=== PATIENT | female | born 1960 | race Caucasian/White ===

== ENCOUNTER → 2016-06-14 | Outpatient (CLI) | payer OTHER ==
[~2016-06-14] MED LIST: ADVIL200 M2 PO; ASPIRIN81 MG PO; ATARAX PO; B-121000 MC1 PO; CALCIUM PO; DELTASONE20 MG PO; FLOVENT DI50 MCG/DIS; LIORESAL10 MG PO; MULTI VITAMIN1 EACH PO; OMEGA 3-6-9 11200 M1 PO; PEPCID AC20 MG PO; TRIAMCINOLONE A15 G2 EXT; ZYRTEC10 M2 PO; [UNRECOGNIZED DRUG - OTHER] PO
--- NOTE | ~2016-06-14 | MY11 ---
[facility] A Service of [facility] RADIOLOGY TEXT RESULTS PATIENT: EDMUNDO NAVARRO LOCATION: [facility] : 62 UNIT #: [id number] AGE: [address]: Gloria West SEX: F ORDER DR: [id number] [address] [address] [id number] O MR#: [id number] Acc #: [id number] NAME: EDMUNDO NAVARRO : 1960 SEX: F STUDY DATE/TIME: 06/14/2016 15:16 UNIT: [facility] ROOM: STUDY DESCRIPTION: MY Mammogram Screening Dig Rehan Attending Physician: Gloria West A.P.R.N. Referring Physician: Gloria West A.P.R.N. Ordering Physician: Gloria West A.P.R.N. Primary Care Physician: Gloria West A.P.R.N. MEDICAL IMAGING REPORT This report is preliminary unless electronic signature is present. EXAM Digital screening mammogram, 06/14/2016, [facility]. HISTORY 56-year-old woman no risk elevation. Annual screen. COMPARISON STUDIES Mammograms date to 10/12/2009 with most recent 05/16/2015. TECHNIQUE Digital imaging of each breast was completed utilizing screening protocol. Review includes FDA-approved CAD device. FINDINGS Breast parenchyma is heterogeneous with scattered parenchymal opacities throughout both breast. Subtle focal area architectural distortion projects in the upper hemisphere left breast middle third. This will require additional imaging to exclude summation artifact. Recommend a true lateral projection with exaggerated craniocaudal view and high-resolution spot compression views. Right breast parenchyma is negative and stable. IMPRESSION Incomplete mammographic evaluation. Additional left breast imaging is recommended. See full report with recommendations. Patients over the age of 40 are entered into a reminder system with target due date for the next mammogram. A result letter will also be sent to the patient. BIRADS: 0 Incomplete; need additional imaging evaluation and/or prior mammograms for comparison. [facility] A Service of [facility] RADIOLOGY TEXT RESULTS PATIENT: EDMUNDO NAVARRO LOCATION: [facility] : 62 UNIT #: [id number] AGE: [address]: Gloria West SEX: F ORDER DR: STAT * RESULT Dictated by... Zi Castillo M.D. THIS IS AN ELECTRONICALLY VERIFIED REPORT Zi Castillo M.D. at 06/14/2016 3:59 PM FOREIGN/girish TD: 06/14/2016 15:51 JOB #: [id number] MEDICAL IMAGING REPORT Page 1 of 1
== END | disposition home or self-care (01) ==
LOC: SMAM 14:40
DX: Z12.31 Encounter for screening mammogram for malignant neoplasm of breast (principal)
CPT/HCPCS: G0202

== ENCOUNTER → 2016-06-26 | Outpatient (CLI) | payer OTHER ==
--- NOTE | ~2016-06-26 | MY7 ---
[facility] A Service of [facility] RADIOLOGY TEXT RESULTS PATIENT: EDMUNDO NAVARRO LOCATION: [facility] : 62 UNIT #: [id number] AGE: [address]: Gloria West SEX: F ORDER DR: [id number] [facility] [address] [place], [place] [address] [id number] O MR#: [id number] Acc #: [id number] NAME: EDMUNDO NAVARRO. : 1960 SEX: F STUDY DATE/TIME: 06/26/2016 14:20 UNIT: [facility] ROOM: STUDY DESCRIPTION: MY Mammogram Dx Dig Lt Attending Physician: Gloria West A.P.R.N. Ordering Physician: Gloria West A.P.R.N. Primary Care Physician: Gloria West A.P.R.N. MEDICAL IMAGING REPORT This report is preliminary unless electronic signature is present EXAM Additional views left breast and targeted left breast ultrasound, 06/26/2016. INDICATION 56-year-old female recalled for an asymmetry in the upper hemisphere left breast on a screening study performed 06/14/2016. No current problems. TECHNIQUE Compression MLO, true lateral, and exaggerated CC lateral views of the left breast were obtained and reviewed with an FDA-approved CAD device. Targeted ultrasound of the upper hemisphere left breast was also performed. COMPARISON Mammograms 06/14/2016, 05/16/2015, 05/03/2014, 03/23/2013, 01/15/2012. FINDINGS The breast parenchyma is heterogeneously dense degrading sensitivity of mammography. The compression views demonstrate that the area of potential architectural distortion in the upper hemisphere left breast corresponds to benign-appearing breast tissue that can be seen in a similar configuration and pattern dating back to at least 2013. The area becomes less conspicuous with spot compression and is unchanged from prior studies for technical factors. No associated suspicious microcalcifications or focal mass. There is dense breast tissue in the outer hemisphere left breast. Benign calcifications are noted. Ultrasound was thereafter performed of the upper hemisphere. ULTRASOUND FINDINGS Left breast: The patient was initially scanned independently by the technologist and then rescanned in my presence. Imaging of the upper hemisphere left breast demonstrates no suspicious cystic or solid nodule STS. [facility] A Service of [facility] RADIOLOGY TEXT RESULTS PATIENT: EDMUNDO NAVARRO LOCATION: [facility] : 62 UNIT #: [id number] AGE: [address]: Gloria West SEX: F ORDER DR: or persistent shadowing abnormality. There is some heterogeneously dense breast tissue in the outer hemisphere left breast similar to the patient's mammogram. Incidental prominent duct in the subareolar left breast noted. The patient denies nipple discharge and there is no internal filling defect or internal color-flow. Absent new or worsening symptoms in either breast, return to an annual screening schedule is recommended. Findings and recommendations discussed with the patient. She voiced understanding and agreement. IMPRESSION Additional views of the left breast and ultrasound of the upper hemisphere left breast demonstrate benign findings. Return to an annual screening regimen is recommended. See discussion above. Patients over the age of 40 are entered into a reminder system with target due date for the next mammogram. A result letter will also be sent to the patient. BIRADS: 2 Benign finding. Dictated by... Tanner Ziegler M.D. THIS IS AN ELECTRONICALLY VERIFIED REPORT Tanner Ziegler M.D. at 06/27/2016 5:31 PM RAYO/girish TD: 06/27/2016 09:37 JOB #: [id number] MEDICAL IMAGING REPORT Page 1 of 1 COPY
--- NOTE | ~2016-06-26 | US24 ---
[facility] A Service of [facility] RADIOLOGY TEXT RESULTS PATIENT: EDMUNDO NAVARRO LOCATION: [facility] : 62 UNIT #: [id number] AGE: [address]: Gloria West SEX: F ORDER DR: [id number] [facility] [address] [place], [place] [address] [id number] O MR#: [id number] Acc #: [id number] NAME: EDMUNDO NAVARRO. : 1960 SEX: F STUDY DATE/TIME: 06/26/2016 14:49 UNIT: [facility] ROOM: STUDY DESCRIPTION: US Breast Unilateral Attending Physician: Gloria West A.P.R.N. Ordering Physician: Gloria West A.P.R.N. Primary Care Physician: Gloria West A.P.R.N. MEDICAL IMAGING REPORT This report is preliminary unless electronic signature is present EXAM Targeted ultrasound of the left breast, 06/26/2016. INDICATION 56-year-old female recalled for an asymmetry in the upper hemisphere left breast on a recent screening mammogram. Correlation with diagnostic mammography same date. FINDINGS Please see report from the diagnostic mammogram from 06/26/2016 for this dictation. Patients over the age of 40 are entered into a reminder system with target due date for the next mammogram. A result letter will also be sent to the patient. BIRADS: 2 Benign finding. Dictated by... Tanner Ziegler M.D. THIS IS AN ELECTRONICALLY VERIFIED REPORT Tanner Ziegler M.D. at 06/27/2016 5:31 PM RAYO/girish TD: 06/27/2016 09:25 JOB #: [id number] MEDICAL IMAGING REPORT Page 1 of 1 COPY
== END | disposition home or self-care (01) ==
LOC: CMAM 14:04
DX: R92.8 Other abnormal and inconclusive findings on diagnostic imaging of breast (principal)
CPT/HCPCS: 76641; G0202; G0206